=== PATIENT | male | born 1960 | race Caucasian/White ===

== ENCOUNTER 2020-05-25 05:54 | Day surgery (SDC) | payer OTHER ==
[2020-05-24 16:05] VITALS: BMI 23.6
[2020-05-25] MEDS ORDERED: Lidocaine 1% MPF 2 ML VIAL ONE (07:26)
[2020-05-25] MEDS ORDERED: Midazolam HCl 2 mg/2 ml Vial ONE (08:08)
[2020-05-25] MEDS ORDERED: Lidocaine 1% PF 5 ML VIAL ONE (08:08)
[2020-05-25] MEDS ORDERED: PROPOFOL 40 ML ONE (08:08)
[2020-05-25] MEDS ORDERED: PROPOFOL 20 ML ONE (08:24)
== END 2020-05-25 09:40 | disposition home or self-care (01) ==
LOC: CSHSDC 05:54
PROVIDERS: ATTEND Internal Medicine Gastroenterology
PROC: 0D738ZZ Dilation of Lower Esophagus, Via Natural or Artificial Opening Endoscopic (ICD-10-PCS; principal; 2020-05-25)
PROC: 0DB68ZX Excision of Stomach, Via Natural or Artificial Opening Endoscopic, Diagnostic (ICD-10-PCS; principal; 2020-05-25)
DX: K22.2 Esophageal obstruction (principal); K22.10 Ulcer of esophagus without bleeding; K31.9 Disease of stomach and duodenum, unspecified; K21.9 Gastro-esophageal reflux disease without esophagitis; K44.9 Diaphragmatic hernia without obstruction or gangrene; K31.7 Polyp of stomach and duodenum; K29.80 Duodenitis without bleeding
CPT/HCPCS: 88305; J2250; J2704

== ENCOUNTER 2020-06-13 17:29 | Outpatient (CLI) | payer OTHER ==
[2020-06-14 01:20] LABS: SARS-CoV-2 PCR by NAA Not Detected (NotDetected)
== END 2020-06-13 17:30 | disposition home or self-care (01) ==
LOC: CSHLAB 17:29
PROVIDERS: ATTEND Internal Medicine Gastroenterology
DX: Z20.822 Contact with and (suspected) exposure to COVID-19 (principal); R13.10 Dysphagia, unspecified
CPT/HCPCS: 87635; U0003; U0005

== ENCOUNTER 2020-06-16 09:08 | Day surgery (SDC) | payer OTHER ==
[2020-06-15 11:37] VITALS: BMI 23.0
[~2020-06-16 09:08] MED LIST: Lidocaine 1% MPF 2 ML VIAL ONE
[2020-06-16] MEDS ORDERED: Midazolam HCl 2 mg/2 ml Vial ONE (10:38)
[2020-06-16] MEDS ORDERED: PROPOFOL 20 ML ONE (10:38)
== END 2020-06-16 12:15 | disposition home or self-care (01) ==
LOC: CSHSDC 09:08
PROVIDERS: ATTEND Internal Medicine Gastroenterology
PROC: 0D758ZZ Dilation of Esophagus, Via Natural or Artificial Opening Endoscopic (ICD-10-PCS; principal; 2020-06-16)
DX: K22.2 Esophageal obstruction (principal); R13.10 Dysphagia, unspecified; K44.9 Diaphragmatic hernia without obstruction or gangrene; K31.7 Polyp of stomach and duodenum; K22.10 Ulcer of esophagus without bleeding; Z21 Asymptomatic human immunodeficiency virus [HIV] infection status; F41.9 Anxiety disorder, unspecified; K21.9 Gastro-esophageal reflux disease without esophagitis; M81.0 Age-related osteoporosis without current pathological fracture; E78.5 Hyperlipidemia, unspecified; Z87.891 Personal history of nicotine dependence
CPT/HCPCS: J2250; J2704

== ENCOUNTER 2020-12-16 09:40 | Outpatient (CLI) | payer OTHER ==
[2020-12-16 17:27] LABS: SARS-CoV-2 PCR by NAA Not Detected (NotDetected)
== END 2020-12-16 09:41 | disposition home or self-care (01) ==
LOC: CSHLAB 09:40
PROVIDERS: ATTEND Internal Medicine Gastroenterology
DX: Z01.812 Encounter for preprocedural laboratory examination (principal); Z20.822 Contact with and (suspected) exposure to COVID-19; R13.10 Dysphagia, unspecified; Z12.11 Encounter for screening for malignant neoplasm of colon
CPT/HCPCS: U0003; U0005

== ENCOUNTER 2020-12-19 07:30 | Day surgery (SDC) | payer OTHER ==
[2020-12-16 11:55] VITALS: BMI 24.3
[2020-12-19] MEDS ORDERED: Lidocaine 1% MPF 2 ML VIAL ONE (07:37)
[2020-12-19] MEDS ORDERED: Fentanyl 100 MCG/2 ML VIAL ONE (09:29)
[2020-12-19] MEDS ORDERED: PROPOFOL 40 ML ONE (09:29)
[2020-12-19] MEDS ORDERED: Lidocaine 1% PF 5 ML VIAL ONE (09:30)
[2020-12-19] MEDS ORDERED: PROPOFOL 20 ML ONE (10:10)
== END 2020-12-19 11:00 | disposition home or self-care (01) ==
LOC: CSHSDC 07:30
PROVIDERS: ATTEND Internal Medicine Gastroenterology
PROC: 0D758ZZ Dilation of Esophagus, Via Natural or Artificial Opening Endoscopic (ICD-10-PCS; principal; 2020-12-19)
PROC: 0DB68ZZ Excision of Stomach, Via Natural or Artificial Opening Endoscopic (ICD-10-PCS; principal; 2020-12-19)
PROC: 0DBK8ZZ Excision of Ascending Colon, Via Natural or Artificial Opening Endoscopic (ICD-10-PCS; principal; 2020-12-19)
DX: K22.2 Esophageal obstruction (principal); D12.2 Benign neoplasm of ascending colon; K31.7 Polyp of stomach and duodenum; K22.10 Ulcer of esophagus without bleeding; K21.9 Gastro-esophageal reflux disease without esophagitis; K44.9 Diaphragmatic hernia without obstruction or gangrene; R19.7 Diarrhea, unspecified; K57.30 Diverticulosis of large intestine without perforation or abscess without bleeding
CPT/HCPCS: 88305; J2704; J3010